=== PATIENT | female | born 1990 | race Caucasian/White ===

== ENCOUNTER 2017-12-04 20:06 | Emergency (ER) | payer OTHER ==
[~2017-12-04] VITALS: Ht 162.6 cm; Wt 65.8 kg
[2017-12-04 20:16] VITALS: BP 107/62
[2017-12-04] MEDS ORDERED: PRENATAL PO (20:23)
== END 2017-12-04 20:16 | disposition left against medical advice (07) ==
LOC: ER 20:06
DX: Z53.21 Procedure and treatment not carried out due to patient leaving prior to being seen by health care provider (principal)

== ENCOUNTER 2018-03-01 20:11 | Emergency (ER) | payer OTHER ==
[~2018-03-01] VITALS: Ht 162.6 cm; Wt 74.8 kg
[~2018-03-01 20:11] MED LIST: PRENATAL PO
[2018-03-01 20:13] VITALS: BP 141/84
[2018-03-01] MEDS ORDERED: CLEOCIN HCL150 MG PO (21:21)
== END 2018-03-01 21:41 | disposition left against medical advice (07) ==
LOC: ER 20:11
DX: R22.0 Localized swelling, mass and lump, head (principal); F17.210 Nicotine dependence, cigarettes, uncomplicated